=== PATIENT | male | born 1940 | race Caucasian/White ===

== ENCOUNTER 2025-05-26 21:49 | Emergency (ER) | payer OTHER, MEDICARE ==
[2025-05-26 22:21] LABS: Hematocrit 42.7 % (42.0-52.0); Hemoglobin 15.1 g/dL (14.0-18.0); Mean Corpuscular Hemoglobin 33.6 pg (27.0-31.0); Mean Corpuscular Volume 95.0 fl (78.0-98.0); Platelet Count 188 10x3/uL (130-400); Red Blood Cell (RBC) Count 4.49 mill/uL (4.70-6.10); White Blood Cell (WBC) Count 9.2 10x3/uL (4.8-10.8)
[2025-05-26 22:28] LABS: INR-International Normal Ratio 1.0; Prothrombin Time 13.5 sec (12.0-14.7)
[2025-05-26 22:29] LABS: PTT 31.1 sec (22.9-36.1)
[2025-05-26 22:34] LABS: MDiff Complete? YES; Platelet Adequacy Comment Appears Adequate
[2025-05-26 22:38] LABS: ALT (SGPT) 13 U/L (Less than 45); AST (SGOT) 34 U/L (11-34); Albumin 4.2 g/dL (3.1-4.5); Alkaline Phosphatase 59 U/L (40-110); Anion Gap 17 mmol/L (10-20); BUN (Urea Nitrogen) 12 mg/dL (8.4-25.7); Bilirubin, Total 0.8 mg/dL (0.3-1.2); Calc. Creatinine Clearance 0 mL/min (70-130); Calcium 9.3 mg/dL (7.8-10.44); Carbon Dioxide 21 mmol/L (23-31); Chloride 101 mmol/L (98-107); Globulin 2.8 g/dL (2.4-3.5); Glucose 95 mg/dL (83-110); Potassium 3.8 mmol/L (3.5-5.1); Sodium 135 mmol/L (136-145)
== END 2025-05-26 23:30 | disposition home or self-care (01) ==
LOC: NAV ERS 21:49
DX: I10 Essential (primary) hypertension (principal); R29.700 NIHSS score 0
CPT/HCPCS: 36416; 80053; 85025; 85610; 85730; 93005; 99284